=== PATIENT | female | born 1960 | race Caucasian/White ===

== ENCOUNTER → 2016-10-10 17:10 | Outpatient (CLI) | payer BC ==
[2016-10-14 19:10] LABS: HCVGENO - HEP C QUANT HCV Not Detected IU/mL (())
== END | disposition home or self-care (01) ==
LOC: D.LAB 13:15
PROVIDERS: Internal Medicine Gastroenterology
DX: B19.20 Unspecified viral hepatitis C without hepatic coma (principal)

== ENCOUNTER → 2016-12-10 09:15 | Outpatient (CLI) | payer BC | END | disposition home or self-care (01) | LOC: D.US 08:30 | DX: M79.605 Pain in left leg (principal); M79.604 Pain in right leg ==

== ENCOUNTER 2017-07-24 16:51 | Emergency (ER) | payer BC | END 2017-07-24 21:20 | disposition home or self-care (01) | LOC: D.ER 16:51 | DX: S63.91XA Sprain of unspecified part of right wrist and hand, initial encounter (principal); X58.XXXA Exposure to other specified factors, initial encounter; Y93.89 Activity, other specified; Y92.019 Unspecified place in single-family (private) house as the place of occurrence of the external cause; I10 Essential (primary) hypertension ==

== ENCOUNTER 2017-07-26 20:35 | Emergency (ER) | payer BC | END 2017-07-26 21:14 | disposition home or self-care (01) | LOC: D.ER 20:35 | DX: B37.0 Candidal stomatitis (principal); I10 Essential (primary) hypertension ==

== ENCOUNTER 2017-08-26 12:56 | Emergency (ER) | payer BC ==
[2017-08-26 15:22] LABS: APPEARANCE CLEAR (CLEAR); BILIRUBIN NEGATIVE (NEGATIVE); COLOR YELLOW (YELLOW); GLUCOSE NEGATIVE (NEGATIVE); KETONE NEGATIVE (NEGATIVE); NITRITE NEGATIVE (NEGATIVE); PROTEIN NEGATIVE (NEGATIVE); UROBILINOGEN NORMAL (NORMAL)
== END 2017-08-26 16:09 | disposition home or self-care (01) ==
LOC: D.ER 12:56
PROVIDERS: Nurse Practitioner Family
DX: T37.0X5A Adverse effect of sulfonamides, initial encounter (principal); Y92.019 Unspecified place in single-family (private) house as the place of occurrence of the external cause; I10 Essential (primary) hypertension